=== PATIENT | female | born 1945 | race Caucasian/White ===

== ENCOUNTER → 2016-08-28 | Outpatient (CLI) | payer MEDICARE, BC ==
[~2016-08-28] MED LIST: ASCO500C7 PO; CHOL500010 PO; CYCL5TAB PO; KRIL1CAP11 PO; LEVO50TA74 PO; LEVO75TA5 PO; MELO-109 PO; MULT-762 PO; ULT50 PO
--- NOTE | 2016-08-28 17:54 | HKNOTE ---
DATE OF SERVICE: 08/28/2016 HISTORY OF PRESENT ILLNESS: Patient comes in for preoperative evaluation. She is scheduled to have a right knee replacement on 09/02/2016. She is being cleared for surgery by Dr. Lundberg. She has not given any blood for autotransfusion. She understands the risks associated with using hospit al blood. She is agreeable to using hospital blood if needed. Numerous questions were asked and an swered. She read my book on knee arthritis and knee replacement surgery. Dictated By: JEROMY KANG/RAFI Conf#: [id number] DID#: [id number]
== END | disposition home or self-care (01) ==
LOC: HKI 13:11
DX: Z01.818 Encounter for other preprocedural examination (principal)
CPT/HCPCS: G0463

== ENCOUNTER 2016-09-02 05:19 | Inpatient (IN) | payer MEDICARE, BC ==
--- NOTE | 2016-08-28 15:11 | PREOPHP ---
DATE OF ADMISSION: 09/02/2016 Patient to have surgery with Dr. Sahil Miller 09/02/2016. REASON FOR CONSULTATION: Consultation requested by Dr. Sahil Miller for medical evaluation o f a 71-year-old woman about to undergo surgery on her right knee. HISTORY OF PRESENT ILLNESS: In terms of her prior surgical procedure, she had a total hip replaceme nt in 2000, had a cervical spine fusion done a while back, right and left carpal tunnel. She had fr actured her right hip in the past and also had a parathyroidectomy done for hypercalcemia or hyperpa rathyroidism. Other than her fractured right hip and fracture of the fifth metatarsal that did not require any surgery and had right arthroscopic shoulder surgery. Other than that, she has been rela tively healthy and has had no medical hospitalizations. Her deliveries were vaginal and not requiri ng any surgical procedures. CURRENT MEDICATIONS: Include the followin. Synthroid 50 mcg 5 days a week, 75 mcg 2 days a week. 2. Meloxicam 7.5 mg b.i.d., which she has stopped. 3. Tramadol 50 mg q. 6 hours. 2. Cyclobenzaprine 5 mg as needed. ALLERGIES 1. PENICILLIN. 2. TURMERIC. SOCIAL HISTORY: The patient is , has 2 children, 4 grandchildren. She does not smoke. [place]co hol socially. Drinks tea, is currently retired and usually has no difficulty sleeping at night. FAMILY HISTORY: Both parents are . Father at age 89, has hypertension but had Jose Juan on related issues, which caused his , mother at 93, had dementia. Three siblings are in good health, however, has been one sibling with bladder and prostate cancer. Family history of heart, cancer, hypertension and possibly stroke and everybody has thyroid issues. REVIEW OF SYSTEMS HEENT: Periodic headaches. CARDIORESPIRATORY: Denies any chest pain or shortness of breath. GASTROINTESTINAL: No melena or hematemesis. GENITOURINARY: No urgency or frequency. MUSCULOSKELETAL: Positive for right knee pain. 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 NEUROPSYCHIATRIC: Unremarkable. GENERAL HEALTH: As above. PHYSICAL EXAMINATION: VITAL SIGNS: The patient's blood pressure was 140/80, pulse was 80 and regular, respirations were 1 7, temperature 98.1. Height 5 feet tall, weight 214 pounds. GENERAL: The patient was noted to be a well-developed, well-nourished female, alert and cooperative , in no apparent acute distress, oriented to time, place, and person. HEAD, EARS, EYES, NOSE AND THROAT: Head was atraumatic. Eyes: Pupils were equal, reactive to ligh t and accommodation. Fundi were benign. Tympanic membranes were unremarkable. Nose was negative. Mouth was unremarkable. Fair oral hygiene was present. NECK: Supple without any rigidity. Trachea was midline. Thyroid was within normal limits. Neck v eins were flat. Carotid pulses were equal. No bruits were heard. BACK: Unremarkable. CHEST: Symmetrical. BREASTS AND AXILLARY: Did not reveal any masses. LUNGS: Clear to percussion and auscultation. HEART: PMI is fifth intercostal space at the midclavicular line. A regular sinus rhythm was noted . No significant murmurs, rubs, or gallops being elicited. ABDOMEN: Soft, good bowel sounds were noted. No significant organomegaly, masses, or tenderness. GENITALIA: Normal female external genitalia. PELVIC: Per cloud subject matter expert, up to date, unremarkable. EXTREMITIES: Not revealing clubbing, edema or cyanosis. Scar the at the right hip area was noted a s well as anterior cervical. Peripheral pulses were physiologic. SKIN: Moist and warm without any eruptions. No gross lymphadenopathy was noted. NEUROLOGIC: Grossly intact. IMPRESSION: 1. Degenerative joint disease, right knee. 2. 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 3. Hypothyroidism. 4. Menopausal syndrome. 5. Stable health. DISCUSSION: Review of laboratory and other data revealed the following: Patient's chemistry panel revealed a normal glucose, BUN, creatinine, electrolytes, liver function tests, alkaline phosphatase was minimally elevated at 162, probably secondary to her hip disease. TSH was 3.67, B12 was somewh at low. Hemoglobin A1c was normal. Vitamin D was normal. T3 was slightly low. CBC, sed rate, UA, PT, PTT were normal, the patient's EKG was normal and her chest x-ray was within normal limits as w ell. The hardware from cervical spine fusion was visible but no acute infiltrates or any other abno rmalities. Dr. Miller, I see no contraindication in this patient undergoing current proposed surgery under desired form of anesthesia and feel she is a suitable candidate at this particular point in time and will be more than happy to follow her along with you during her stay at [facility]. Thank you again, Dr. Miller, for allowing us to participate in the care of this patient. Dictated By: CONCHA BEATTY MD SS/RAFI Conf#: [id number] DID#: [id number]
[2016-09-01 10:08] VITALS: BMI 39.2
[2016-09-02] VITALS (23 sets, daily range): BP systolic 104–137; BP diastolic 59–74; PULSE 57–96; RESP 11–20; Ht 152.4 cm; Wt 95.8 kg
[~2016-09-02] VITALS: Ht 152.4 cm; Wt 95.8 kg
[~2016-09-02 05:19] MED LIST changes: -ASCO500C7 PO; -CHOL500010 PO; -CYCL5TAB PO; +KNEE PAIN COCKTAIL VANCO INJ SCH; -KRIL1CAP11 PO; -LEVO50TA74 PO; -LEVO75TA5 PO; -MELO-109 PO; -MULT-762 PO; -ULT50 PO
[2016-09-02] MEDS ORDERED: DEXAMETHASONE 4 MG/ML 1 ML INJ IV ONE (06:00)
[2016-09-02] MEDS ORDERED: LANSOPRAZOLE 30 MG CAP PO ONE (06:00)
[2016-09-02] MEDS: TRANEXAMIC ACID IRR SCH ×4 (06:00→08:55)
[2016-09-02] MEDS: SOD CHLORIDE 0.9% IRR SCH ×4 (06:00→08:55)
[2016-09-02] MEDS ORDERED: VANCOMYCIN 1 GM (PMX) 250 ML IVPB ONE (06:00)
[2016-09-02] MEDS ORDERED: oxyCODONE (CR) 10 MG TAB [oxyCONTIN] PO ONE (06:00)
[2016-09-02] MEDS ORDERED: LACTATED RINGER'S 1,000 ML IV* SCH (06:00)
[2016-09-02] MEDS ORDERED: ACETAMINOPHEN 1000MG/100ML IV 100 ML IVPB ONE (06:00)
[2016-09-02] MEDS ORDERED: TRANEXAMIC ACID IVPB ONE (06:00)
[2016-09-02] MEDS ORDERED: SOD CHLORIDE 0.9% IVPB ONE (06:00)
[2016-09-02] MEDS ORDERED: CELECOXIB 200 MG CAP PO ONE (06:00)
[2016-09-02] MEDS ORDERED: ONDANSETRON 4 MG INJ IV ONE (06:00)
[2016-09-02] MEDS ORDERED: ROPIVACAINE 0.2% 100ML BAG ONE (06:32)
[2016-09-02] MEDS ORDERED: METHYLENE BLUE 10 MG/ML VIAL ONE (06:32)
[2016-09-02] MEDS ORDERED: POLYMYXIN B 500000 UNIT INJ ONE (06:33)
[2016-09-02] MEDS ORDERED: VANCOMYCIN 1 GM INJ ONE (06:33)
[2016-09-02] MEDS ORDERED: TOBRAMYCIN 1.2 GM POWDER ONE (06:35)
[2016-09-02] MEDS ORDERED: BUPIVACAINE 0.25%/EPI (SDV) 30 ML INJ ONE ×2 (06:35→08:14)
[2016-09-02] MEDS ORDERED: MIDAZOLAM 1 MG/ML 2 ML INJ ONE (06:41)
[2016-09-02] MEDS ORDERED: MELO-109 PO (06:58)
[2016-09-02] MEDS ORDERED: ULT50 PO (06:58)
[2016-09-02] MEDS ORDERED: LEVO50TA74 PO (06:58)
[2016-09-02] MEDS ORDERED: LEVO75TA5 PO (06:58)
[2016-09-02] MEDS ORDERED: FENTAnyl 50 MCG/ML VIAL ONE (07:11)
[2016-09-02] MEDS ORDERED: MULT-762 PO (07:19)
[2016-09-02] MEDS ORDERED: ASCO500C7 PO (07:19)
[2016-09-02] MEDS ORDERED: CYCL5TAB PO (07:19)
[2016-09-02] MEDS ORDERED: CHOL500010 PO (07:19)
[2016-09-02] MEDS ORDERED: KRIL1CAP11 PO (07:19)
[2016-09-02] MEDS ORDERED: ROPIVACAINE 0.2% 20 ML VIAL ONE (07:29)
[2016-09-02] MEDS ORDERED: MEPERIDINE 25 MG INJ IV PRN (08:30)
[2016-09-02] MEDS ORDERED: NALOXONE (0.4 MG/ML) INJ IV PRN ×2 (08:30→11:00)
[2016-09-02] MEDS ORDERED: ONDANSETRON 4 MG INJ IV PRN (08:30)
[2016-09-02] MEDS ORDERED: HYDROmorphONE (0.2 MG/ML) 10ML SYG IV PRN ×2 (08:30)
[2016-09-02] MEDS ORDERED: FENTAnyl 50 MCG/ML VIAL IV PRN (08:30)
[2016-09-02] MEDS ORDERED: DIPHENHYDRAMINE 50 MG INJ IV PRN (08:30)
[2016-09-02] MEDS ORDERED: BACITRACIN 50000 UNITS INJ IRR ONE (08:54)
[2016-09-02] MEDS ORDERED: PROPOFOL 20 ML ONE (10:33)
[2016-09-02] MEDS ORDERED: ONDANSETRON 4 MG INJ ONE (10:33)
[2016-09-02] MEDS ORDERED: ROCURONIUM 50 MG INJ ONE (10:33)
[2016-09-02] MEDS ORDERED: LIDOCAINE 2% (SDV) 5 ML INJ ONE (10:33)
--- NOTE | 2016-09-02 10:59 | RADRPT ---
PROCEDURE: CR Right Knee CLINICAL INDICATION: Total knee replacement TECHNIQUE: A single lateral projection was submitted. COMPARISON: 04/17/2016 FINDINGS: Osseous Structures: The patella has been resected. The remaining osseous elements appear intact. Join Spaces: Moderate degenerative changes seen about the patellar femoral joint space. Soft Tissues: Italic or where projects anterior to the tibia and into the distal femur. IMPRESSION: 1. Lateral inch taken during the process of a total right knee replacement with the patella having been resected. 2. Hardware projects anteriorly. Physician Natasha Date Time Electronically viewed and signed by Jerman Simons Physician on 09/02/2016 10:59 RH/
[2016-09-02] MEDS ORDERED: MAGNESIUM HYDROXIDE 30ML CUP PO PRN (11:00)
[2016-09-02] MEDS ORDERED: BISACODYL 10 MG SUPP PR PRN (11:00)
[2016-09-02] MEDS ORDERED: ASPIRIN (EC) 325 MG TAB PO ONE (11:00)
[2016-09-02] MEDS ORDERED: DIPHENHYDRAMINE 50 MG INJ IM PRN (11:00)
[2016-09-02] MEDS ORDERED: HYDROmorphONE 0.2 MG/ML PCA IV PRN (11:00)
[2016-09-02] MEDS ORDERED: oxyCODONE 5 MG TAB PO PRN ×2 (11:00)
[2016-09-02] MEDS ORDERED: DOCUSATE SODIUM 100 MG CAP PO ONE (11:00)
[2016-09-02] MEDS ORDERED: ZOLPIDEM 5 MG TAB PO PRN (11:00)
[2016-09-02] MEDS ORDERED: SENNA/DOCUSATE NA (8.6MG/50MG) TAB PO PRN (11:00)
[2016-09-02] MEDS ORDERED: NA PHOSPHATE/BIPHOS 133 ML ENEMA PR PRN (11:00)
[2016-09-02] MEDS ORDERED: MEPERIDINE 10 MG/ML 30 ML PCA IV PRN (11:00)
[2016-09-02] MEDS ORDERED: COUMADIN NOTE XX SCH (11:00)
[2016-09-02] MEDS: ONDANSETRON 4 MG INJ IV SCH ×3 (11:35→23:00)
--- NOTE | 2016-09-02 11:37 | RADRPT ---
PROCEDURE: CR Right Knee CLINICAL INDICATION: Right total knee replacement TECHNIQUE: 7 images were submitted all of which are AP except for 1 lateral projection COMPARISON: Previous lateral view done earlier on the same date FINDINGS: Osseous Structures: Images demonstrate placement of well seated distal femoral and proximal tibial p ortions of knee replacement. The patellar component is not evident. The osseous elements otherwise appear intact. Join Spaces: The joint spaces are well maintained. No joint effusion is identified. Soft Tissues: There is a surgical defect seen within the anterior soft tissues. IMPRESSION: 1. The distal femoral and proximal tibial total knee replacement components appear well seated well the patellar component has not yet been placed. 2. The osseous elements otherwise appear intact. 3. Surgical defect seen ventrally. Physician Natasha Date Time Electronically viewed and signed by Physician Natasha on 09/02/2016 11:37 /
[2016-09-02] MEDS: DEXTROSE 5%-LR 1,000 ML IV SCH ×2 (11:40→23:10)
--- NOTE | 2016-09-02 13:00 | OPR ---
DATE OF OPERATION: 09/02/2016 TOTAL KNEE REPLACEMENT TEMPLATE #1 SURGEON: Sahil Miller MD LAST MODEL DEPARTMENT SUPERVISOR: ANESTHESIOLOGIST: Dr. Keith PREOPERATIVE DIAGNOSIS: Exceedingly severe degenerative osteoarthritis of the right knee. POSTOPERATIVE DIAGNOSIS: Exceedingly severe degenerative osteoarthritis of the right knee. OPERATION PERFORMED: Total knee replacement (arthroplasty of the knee, condylar plateau medial and lateral compartments with patella resurfacing, CPT 98992). FINDINGS AT SURGERY: The knee was found to have severe degenerative changes particular severe on th e femoral side over the weightbearing surfaces. The arthritis was much worse than was noted on the x-ray. An intraoperative x-ray was obtained of the distal femur to show the extent of the weightbea ring the erosion. Her bone quality was remarkably good for a female of her age. If she were 15 yea rs younger she may have been a candidate for partial knee replacement, but definitely not at her age . She would need a revision surgery with 2 or 3 years. JUSTIFICATION FOR SURGERY: The knee was found to have end-stage osteoarthritis. The patient is a v nelson active 71-year-old whose lifestyle is markedly affected by the arthritic knee. An extensive cou rse of conservative care has been tried prior to embarking on the knee replacement operation. There can be no reasonable expectation that any further conservative treatment will make any improvement to this patient's pain level and lifestyle. The risks and complications of the surgery were discuss ed with the patient at the preoperative visit as well as the risks and possible complications of blo od transfusion using hospital blood. The patient is agreeable to using hospital blood if needed. DESCRIPTION OF PROCEDURE: The patient was given intravenous antibiotics 1 hour prior to surgery. A n epidural anesthetic was initiated in the ICU holding area. The patient was taken to the operating room and given a light general anesthetic. The leg, foot, and ankle were prepared and draped in th e usual sterile fashion. The center of the ankle was marked at the midpoint between the 2 malleoli with a sterile marking pen. A tourniquet around the thigh was inflated to ____ mmHg after the leg h ad been exsanguinated using an Esmarch bandage. The tourniquet was inflated at the initiation of pr ocedure for a short period and was then again reinflated at the time of cementing the components par ts. The total tourniquet time was 46 minutes. A longitudinal incision was made over the anterior aspect of the knee. The incision extended from t he tibial tubercle to a point just above the patella. The medial capsule was exposed by sharp and b ayala dissection, and was incised 1/4 inch medial to the patella. A marking stitch was set on each s randy of the incision at the midpoint of the capsule so as to enable accurate reapproximation at the e nd of the operation. A vastus split was made in the vastus medialis extending from the superior sanjeev e of the patella for approximately 5 cm between the line with the muscle fibers. The ends of the mu scle split at the patella were marked with a marking stitch on each side for later accurate reapprox imation. The patella was reflected laterally and osteophytes around the rim of the patella were rem blanco. Osteophytes along the lateral femoral condyle were removed so as to facilitate lateral reflec tion of the patella. Posteromedial osteophytes were removed on the lateral side as well, so as to f ree up the lateral collateral ligament. Medial femoral osteophytes and posteromedial femoral osteop hytes were also removed at this time. This allowed for the knee to be brought into a more normal al ignment. A segment of bone was cut from the articular surface of the patella using a caliper to det ermine the exact thickness to be removed. The remaining thickness of the patella was 15 mm. The kn ee was flexed, and the patella was displaced laterally without eversion. Osteophytes in the femoral notch were removed. The remnants of the medial and lateral menisci were excised and the cruciate l igaments were excised. The medial collateral ligament was elevated as an osteo-periosteal flap from the proximal tibia. The distal end of the medial collateral ligament remained attached to the tibi a throughout the operation. The tibia was retracted forward with Hohmann retractor, inserted extension educator ior to the midpoint of the proximal tibia. The tibial jig was set in place in such a way as to alig n longitudinally with the anterior tibial spine, with the junction of the middle and medial 2/3 of t he patella tendon, and with the posterior intercondylar eminence of the tibia. An AP and lateral x- ray was obtained with the alignment jig in place. This showed that the alignment was satisfactory a fter some slight adjustments were made. The posterior slope of the tibia was set at 6 degrees. The tibial cutting block was attached to the proximal tibia with 2 Steinmann pins. An external alignme nt elisa was placed on the cutting block to confirm the alignment of the cutting block. An Herber Wing feeler gauge was now placed on the superior aspect of the cutting block to further confirm the post erior slope of the tibia and the depth of the cut to be made. An oscillating saw was used to remove an appropriate amount of bone from the proximal tibia with the healthy side being used to measure t he cutting depth. The lateral femoral condyle of the distal femur was measured to determine the barbara ropriate size for the femoral component. The anterior condyle of the femur was partially removed wi th a rongeur. A medium-sized cutting block was attached to the distal femur with 2 Steinmann pins t hrough the pin holes in the block. The external alignment jig of this cutting block was lined up wi th the anterior surface of the femur and a central intercondylar hole for the intramedullary elisa was drilled through the hole in the alignment block. The block was removed. A long Waterpik nozzle wa s used to flush fat from the intramedullary canal. The appropriately sized cutting block was now at tached to the femur by means of an intramedullary elisa. The linking guide was inserted into the slot in the base of the femoral cutting block with the knee set at 90 degrees of flexion and with the li nking guide set flush with the proximal tibial cut in order to set the appropriate rotational alignm ent on the femoral cutting block. Ligament balance was checked at this point and was found to be ve ry satisfactory. Once the rotational alignment had been determined, and the ligaments found to be b alanced, the femoral cutting block was secured to the distal femur with 2 Steinmann pins. The anter ior and posterior cuts of the distal femur were made off the femoral cutting block. The cutting blo ck was removed and a spacer block was used to measure the flexion gap which was found to be 12.5 mm. The same spacer block size without the femoral element was used with the leg in extension to determi ne the amount of distal femur to be removed in the transverse plane. A 5-degree distal cutting bloc k was now set on the femoral intramedullary elisa, and the elisa was inserted into the intramedullary ca nal. The appropriate amount of bone to be removed was determined. The femoral cutting block was pi nned to the anterior surface of the femur with 2 Steinmann pins. The appropriate amount of bone was resected off the distal femur to give an extension gap equal to the thickness of the flexion gap. The cut needed to be repeated after initial cut in order to produce an extension gap the same size a s the flexion gap. By using the appropriate cutting blocks, the rest of the femoral cuts were made. The femoral trial component was installed and was found to fit perfectly. The femoral trial component was removed. T he proximal tibia was sized, and the appropriate tibial tray selected. The central fixation hole in the tibia was made using the tibial tray template and the appropriate instruments. The femoral and tibial trials and the trial tibial insert were installed, and the patella was prepared to accept th e 32 mm patella dome component. The trial components were all removed. The tourniquet was inflated . Soft tissues around the knee, especially the posterior capsule, were injected with a mixture of N aropin, Toradol, morphine, and clonidine. The cut surfaces of the bones were cleaned with pulsatile Water Jet lavage and thoroughly dried. Sclerotic bone surfaces were drilled with a 1/8-inch drill. The tibial trial component was installed with methyl methacrylate cement followed by the femoral c omponent and finally the patellar component. Cement was used on all 3 components. The cement was f fozia packed into the cut surfaces of the bone and pressurized with a rubber dam in order to get goo d interdigitation of the cement into the bone. A lateral x-ray of the knee was obtained while the c ement was hardening with the anticipated appropriate spacer trial in place. Once the cement was zack d, all extraneous cement was removed. The cut edges of the medial capsule were held together at the midpoint with a towel clip, and the knee was put through a full range of motion. The patella was f ound to track satisfactorily. A lateral release was not required. At this point, the patella was f ound to track very well in the patellar groove of the femoral component. While the cement was hardening, a lateral x-ray of the knee was obtained to determine if extension w as full with the 12.[address]. This showed that there was slight hyperextension, and onc e all cement had been removed, the 15 mm trial was installed, and the knee was found to have full ex tension and was found to track perfectly. The knee was frequently irrigated with normal saline containing antibiotics with pulsatile lavage th roughout the entire operation as a prophylactic measure against infection. Once the cement was hard , the tourniquet was released. Bleeding points were cauterized. The total tourniquet time was 46 m inutes. The patient's vital signs remained stable throughout the operation. The permanent rotating bearing was installed. Superficial and deep Hemovac drains were set in place . The wound was closed using interrupted Vicryl on the capsule with FiberWire used at strategic poi nts such as the attachment of the distal ends of the vastus medialis at the split, and the tibial te ndon was also attached to the osteo-periosteal flap with FiberWire. The rest of the medial capsule was closed with interrupted Vicryl. A subcuticular stitch was inserted and brooklynn were used on the skin. The usual sterile dressings were applied. A Yury-Gordon compression dressing was applied a fter a sterile cooling pad had been set in place against the deep tissues by sterile cast padding. The patient's condition at the end of the procedure was satisfactory. Vital signs remained stable t hroughout the operation. The patient returned to the recovery room in stable condition. X-rays wer e obtained in the recovery room. Calf pumps were applied to both legs in the operating room. There were no problems or complications as far as we know. The sponge and instrument counts were correct . COMPONENT INFORMATION: KNEE IMPLANT TYPE: LCS. FEMORAL COMPONENT SIZE: 10. TIBIAL COMPONENT SIZE: 2.5. PATELLAR COMPONENT SIZE: 32 mm dome. TIBIAL INSERT: 15 mm posterior stabilized mobile bearing deep dish. 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 TOTAL TOURNIQUET TIME: 46 minutes. TOTAL BLOOD LOSS: Approximately 200 mL. Note that the patient seemed to be quite excessively durin g surgery, even with the tourniquet up, and even more so with the tourniquet down. We asked the ane sthesiologist to give her hypotensive anesthesia down to 80 mm level before bleeding was brought und er control. Dictated By: SAHIL KANG/RAFI Conf#: [id number] DID#: [id number]
--- NOTE | 2016-09-02 13:04 | RADRPT ---
PROCEDURE: XR Knee. CLINICAL INDICATION: Postoperative evaluation right knee TECHNIQUE: 2 images of the right knee are available for review. COMPARISON: None available FINDINGS: There is a constrained total right knee arthroplasty in anatomic alignment. There is anterior soft tissue swelling and soft tissue gas. There is a drain and skin brooklynn noted. There is no acute os seous abnormality. IMPRESSION: Recent right knee total arthroplasty as described above. RPTAT: UU .Mac Evans MD, MD Date Time Electronically viewed and signed by .Mac Evans MD, MD on 09/02/2016 13:04 .K/
[2016-09-02] MEDS ORDERED: CYCLOBENZAPRINE 10 MG TAB PO PRN (13:30)
--- NOTE | 2016-09-02 15:03 | CONS ---
DATE OF ADMISSION: 09/02/2016 DATE OF CONSULTATION: 09/02/2016 HISTORY OF THE PRESENT ILLNESS: Patient to have surgery with Dr. Sahil Miller 09/02/2016. Th e patient is seen by myself after she got to the floor approximately 1:00 p.m. This is a postop consult followup for this patient who is alert, comfortable postoperatively not yen wsy and all. She says she is feeling quite well. PHYSICAL EXAMINATION: VITAL SIGNS: The patient's vital signs revealed the following: Her blood pressure was 128/69, puls e was 74 and regular, respirations were 18, temperature 98 and O2 sat 98% on room air. HEENT: Unremarkable. LUNGS: Clear. HEART: Reveals a regular rhythm. ABDOMEN: Unremarkable. IMPRESSION: 1. 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 2. 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 3. Hypothyroidism. 4. Menopausal syndrome. 5. Stable health. DISCUSSION: The patient appears to be quite stable, does take some medications which will be renewe d and just watch her and monitor her medically during her stay at [facility]. Thank you again, Dr. Miller, for allowing us to participate in the care of this patient. Dictated By: CONCHA SELF/RAFI Conf#: [id number] DID#: [id number]
[2016-09-02] MEDS: VANCOMYCIN 1 GM (PMX) 250 ML IVPB SCH (18:11)
[2016-09-02] MEDS: CELECOXIB 200 MG CAP PO SCH (21:58)
[2016-09-03 00:07] VITALS: BP 118/63; RESP 16
[2016-09-03] MEDS: ONDANSETRON 4 MG INJ IV SCH (04:15)
[2016-09-03 05:21] LABS: BASOPHILS % 0.2 % (0.0-2.0); HEMOGLOBIN 10.9 g/dl (12.0-16.0); LYMPHOCYTES # 1.8 10^3/ul (0.8-2.9); LYMPHOCYTES % 12.5 % (15.0-51.0); MEAN CORPUSCULAR HEMOGLOBIN 29.7 pg (29.0-33.0); MEAN CORPUSCULAR HGB CONC 34.1 g/dl (32.0-37.0); MEAN PLATELET VOLUME 8.6 fl (7.4-10.4); MONOCYTES % 6.8 % (0.0-11.0); NEUTROPHIL # 11.6 10^3/ul (1.6-7.5); NEUTROPHILS % 80.5 % (39.0-77.0); PLATELET COUNT 295 10^3/UL (140-440); RED BLOOD COUNT 3.68 10^6/ul (4.20-5.40); RED CELL DISTRIBUTION WIDTH 14.3 % (11.5-14.5); UNCORRECTED WBC 14.4 10^3/ul (4.8-10.8); WHITE BLOOD COUNT 14.4 10^3/ul (4.8-10.8)
[2016-09-03 05:32] LABS: CONDITION 1
[2016-09-03] MEDS ORDERED: KETOROLAC 30 MG INJ INJ PRN (06:00)
[2016-09-03] MEDS ORDERED: BUPIVACAINE 0.25%/EPI (SDV) 30 ML INJ INJ PRN (06:00)
[2016-09-03] MEDS: DEXAMETHASONE 4 MG/ML 1 ML INJ IV SCH (06:05)
[2016-09-03] MEDS: LEVOTHYROXINE 50 MCG TAB PO SCH (06:05)
[2016-09-03] MEDS: VANCOMYCIN 1 GM (PMX) 250 ML IVPB SCH (06:07)
[2016-09-03 08:23] VITALS: BP 118/55; RESP 18
[2016-09-03] MEDS: ASCORBIC ACID 250 MG TAB PO SCH (09:00)
[2016-09-03] MEDS: MULTIVITAMINS THERAPEUTIC TAB PO SCH (09:19)
[2016-09-03] MEDS: DOCUSATE SODIUM 100 MG CAP PO SCH ×2 (09:19→20:28)
[2016-09-03] MEDS: ASPIRIN (EC) 325 MG TAB PO SCH ×2 (09:19→20:27)
[2016-09-03] MEDS: FERROUS FUMARATE (SR) TAB PO SCH ×2 (09:19→20:28)
[2016-09-03] MEDS: CELECOXIB 200 MG CAP PO SCH ×2 (09:20→20:27)
[2016-09-03] MEDS: CHOLECALCIFEROL 1,000 UNIT TAB PO SCH (09:20)
[2016-09-03] MEDS: DEXTROSE 5%-LR 1,000 ML IV SCH (11:49)
--- NOTE | 2016-09-03 13:11 | CONS ---
DATE OF ADMISSION: 09/02/2016 DATE OF CONSULTATION: 09/03/2016 POSTOP CONSULT FOLLOWUP SUBJECTIVE: The patient is alert this morning, doing well, got out of bed the day before and really is coming along quite nicely. PHYSICAL EXAMINATION: VITAL SIGNS: Revealed the following: Temperature is 98.4, pulse 67, respirations 16, blood pressur e 118/63, O2 saturation 97%. HEENT: Unremarkable. LUNGS: Clear. HEART: Reveals regular rhythm. The rest of the exam is unremarkable. IMPRESSION: 1. 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 2. Hypothyroidism. 3. Menopausal syndrome. 4. Stable health. DISCUSSION: Review of laboratory and other data reveals the following: CBC: Hemoglobin 10.9, melody tocrit of 32. The patient's white count is minimally elevated secondary probably to steroid use. P stuart is per Dr. Miller. The patient is progressing nicely and will continue current medical cynthia men. Thank you again, Dr. Miller, for allowing us to participate in the care of this patient. Dictated By: CONCHA BEATTY MD SS/RAFI Conf#: [id number] DID#: [id number]
--- NOTE | 2016-09-03 14:21 | PN ---
DATE: 09/03/2016 POSTOP DAY #1. The patient underwent a right knee replacement yesterday. She made an excellent recovery. She was up and about walking with physical therapy in the afternoon. She has had minimal pain since the raegan bijan. She has no complaints whatsoever. PHYSICAL EXAMINATION: On physical examination, the wound looks excellent. Her temperature is normal . LABORATORY DATA: White cell count is 14.4, hemoglobin is 10.9. Patient can actively elevate the leg and extension is full, active flexion is to 110 degrees. Neuro vascular is intact. Dictated By: JEROMY KANG/RAFI Conf#: [id number] DID#: [id number]
[2016-09-03 15:15] LABS: ADD UMIC YES; URINE BILIRUBIN (Dip) NEGATIVE (NEGATIVE); URINE BLOOD (Dip) NEGATIVE (NEGATIVE); URINE COLOR LT. YELLOW (YELLOW); URINE GLUCOSE (Dip) NEGATIVE (NEGATIVE); URINE KETONES (Dip) NEGATIVE (NEGATIVE); URINE LEUKOCYTE ESTERASE (Dip) TRACE (NEGATIVE); URINE NITRITE (Dip) NEGATIVE (NEGATIVE); URINE TOTAL PROTEIN (Dip) NEGATIVE (NEGATIVE); URINE UROBILINOGEN (Dip) 0.2 E.U./dL (0.1-1.0)
[2016-09-03 15:37] LABS: MUCUS,URINE FEW; URINE RBCS NONE SEEN /HPF (0)
[2016-09-03 21:02] VITALS: BP 113/56; RESP 19
[2016-09-04] MEDS: DEXTROSE 5%-LR 1,000 ML IV SCH (00:19)
[2016-09-04] MEDS ORDERED: PANTOPRAZOLE (EC) 40 MG TAB PO SCH (06:00)
[2016-09-04] MEDS: DEXAMETHASONE 4 MG/ML 1 ML INJ IV SCH (06:44)
[2016-09-04] MEDS: LEVOTHYROXINE 50 MCG TAB PO SCH (06:45)
[2016-09-04 08:02] LABS: BASOPHIL # 0.1 10^3/ul (0.0-0.1); BASOPHILS % 0.5 % (0.0-2.0); CONDITION 1; EOSINOPHILS # 0.1 10^3/ul (0.0-0.5); EOSINOPHILS % 0.6 % (0.0-7.0); HEMATOCRIT 31.9 % (37.0-47.0); HEMOGLOBIN 10.7 g/dl (12.0-16.0); LYMPHOCYTES # 2.3 10^3/ul (0.8-2.9); LYMPHOCYTES % 21.6 % (15.0-51.0); MEAN CORPUSCULAR HEMOGLOBIN 29.6 pg (29.0-33.0); MEAN CORPUSCULAR HGB CONC 33.6 g/dl (32.0-37.0); MEAN CORPUSCULAR VOLUME 88.3 fl (82.0-101.0); MEAN PLATELET VOLUME 8.4 fl (7.4-10.4); MONOCYTES % 9.2 % (0.0-11.0); NEUTROPHIL # 7.3 10^3/ul (1.6-7.5); NEUTROPHILS % 68.1 % (39.0-77.0); PLATELET COUNT 274 10^3/UL (140-440); RED BLOOD COUNT 3.62 10^6/ul (4.20-5.40); RED CELL DISTRIBUTION WIDTH 14.2 % (11.5-14.5); UNCORRECTED WBC 10.8 10^3/ul (4.8-10.8); WHITE BLOOD COUNT 10.8 10^3/ul (4.8-10.8)
[2016-09-04 08:13] VITALS: BP 122/57; RESP 18
[2016-09-04] MEDS: CELECOXIB 200 MG CAP PO SCH (08:48)
[2016-09-04] MEDS: ASCORBIC ACID 250 MG TAB PO SCH (08:48)
[2016-09-04] MEDS: ASPIRIN (EC) 325 MG TAB PO SCH (08:48)
[2016-09-04] MEDS: DOCUSATE SODIUM 100 MG CAP PO SCH (08:48)
[2016-09-04] MEDS: FERROUS FUMARATE (SR) TAB PO SCH (08:48)
[2016-09-04] MEDS: CHOLECALCIFEROL 1,000 UNIT TAB PO SCH (08:48)
[2016-09-04] MEDS: MULTIVITAMINS THERAPEUTIC TAB PO SCH (08:48)
--- NOTE | 2016-09-04 11:03 | CONS ---
DATE OF ADMISSION: 09/02/2016 DATE OF CONSULTATION: POSTOPERATIVE CONSULT FOLLOWUP Patient had surgery with Dr. Sahil Miller. HISTORY OF PRESENT ILLNESS: The patient had a relatively decent night other than her legs bothering her secondary to the _leg pumps. Other than that, she has no significant complaints, ambulated yesterday without any great difficulty. PHYSICAL EXAMINATION: VITAL SIGNS: Revealed a blood pressure of 122/57, pulse of 82, respiratory rate 18, temperature 98.8, O2 saturation 100% on room air. HEENT: Unremarkable. LUNGS: Clear. HEART: Reveals a regular rhythm. The rest of the exam is unremarkable. IMPRESSION: 1. 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 2. Hypothyroidism. 3. Menopausal syndrome. DISCUSSION: Laboratory and other data today reveal white count has come down to 10.8, hemoglobin was 10.7, hematocrit 31.9 and that is the only lab ordered for today. Yesterday, had a urine which was negative. DISCUSSION: Plan per Dr. Miller. The patient is improving rapidly and is looking forward to going home. Thank you again, Dr. Miller, for allowing us to participate in care of this patient. Dictated By: CONCHA BEATTY MD SS/RAFI Conf#: [id number] DID#: [id number] MTDD
--- NOTE | 2016-09-04 11:11 | PN ---
DATE: 09/04/2016 POSTOPERATIVE DAY #2: The patient is making excellent progress. She is completely independent. Her wound is clean and healing well. She has minimal pain. Hemoglobin 10.7, white cell count 10.8. T he patient will be discharged home today. Visiting nurses and home physical therapy have been helio gandhi for her. She will be seen in my office in 3 weeks' time for re-evaluation. She was given extra dressings to take home with her. Dictated By: JEROMY KANG/RAFI Conf#: [id number] DID#: [id number]
--- NOTE | 2016-09-04 17:31 | DS ---
DATE OF ADMISSION: 09/02/2016 DATE OF DISCHARGE: 09/04/2016 CHIEF COMPLAINT: Pain in the right knee. DISCHARGE DIAGNOSIS: Severe degenerative osteoarthritis of the right knee. HOSPITAL COURSE: On the day of admission, the patient underwent right total knee replacement. Intraoperative Complications: None. Postoperative Complications: None. The patient made excellent progress. She was up walking with physical therapy on the day of surgery and thereafter progressed rapidly so that she is going home on the second postoperative day. On the first postoperative day, physical therapy was started. Gait training was started. The finn lal's leg was placed on a continuous passive motion exercise machine. The patient was given prophylact ic antibiotics and anticoagulants. On the first postoperative day, the suction drain was removed and the dressings were changed daily. The wound was found to be clean and healing well. There was no sign of infection. On the day of discharge, the wound was clean and healing well; there was no sign of infection, the d ressings were changed. Discharge Hemoglobin: 10.7. Discharge White Cell Count: 10.8. Discharge Temperature: Normal. Discharge Condition: The patient will be seen in my office in 3 weeks' time for a followup evaluation but will call if there are any problems before that time and will, in that case, be seen sooner. DISCHARGE MEDICATIONS: Per medication reconciliation form. DIET: Same as preadmission diet. DISCHARGE DIAGNOSIS: Severe degenerative osteoarthritis of the right knee. Dictated By: JEROMY KANG/RAFI Conf#: [id number] DID#: [id number]
== END 2016-09-04 12:20 | disposition home health service (06) | DRG 470 ==
LOC: REC 05:19 → MS1 13:08
PROC: 0SRC0J9 Replacement of Right Knee Joint with Synthetic Substitute, Cemented, Open Approach (ICD-10-PCS; principal; 2016-09-02 07:00)
DX: M17.11 Unilateral primary osteoarthritis, right knee (principal); E03.9 Hypothyroidism, unspecified; Z96.641 Presence of right artificial hip joint; Z78.0 Asymptomatic menopausal state; Z98.1 Arthrodesis status; Z88.0 Allergy status to penicillin
CPT/HCPCS: 73560; 73562; 81001; 81003; 85025; 86850; 86900; 86901; 86920; 87081; 87086; 88304; 88311; 97110; 97116; 97163; 97166; 97530; C1776; J0131; J0735; J1100; J1885; J2250; J2274; J2405; J2795; J3010; J3370; J7120; J7121

== ENCOUNTER → 2016-09-23 | Outpatient (CLI) | payer MEDICARE, BC ==
[~2016-09-23] MED LIST changes: +ASCO500C7 PO; +CHOL500010 PO; +CYCL5TAB PO; -KNEE PAIN COCKTAIL VANCO INJ SCH; +LEVO50TA74 PO; +MULT-762 PO
--- NOTE | 2016-09-23 22:51 | HKNOTE ---
DATE OF SERVICE: 09/23/2016 SUBJECTIVE: A 71-year-old female presents today for 3 week postoperative visit status post right total knee replacement on 09/02/2016. Since discharge from the hospital, patient denies any pain complaints to the right knee. The patient 's only complaint is stiffness, which occurs primarily in the morning. With activity, stiffness improves throughout the day. The patient has yet to initiate outpatient physical therapy, but states that she has first session on 09/26/2016. Denies any shortness of breath, calf pain, or chest pain. The patient continues with DVT prophylaxis in regards to aspirin 325 mg b.i.d. The patient reports minimal use of postoperative pain medications, as she feels that they are not necessary due to limited pain complaints. OBJECTIVE: VITAL SIGNS: Blood pressure 145/65, temperature 98.9 degrees, pulse rate 83, respiratory rate 12, height 5 feet, weight 205 pounds. GENERAL: The patient is alert, oriented, and in no acute distress. Morbid obesity in stature. Gait is nonantalgic, but patient is walking with slight limp. RIGHT KNEE: The patient has 10 degree lag from full extension and she is able to flex the knee between 80 and 90 degrees today. No pain with flexion and extension. No tenderness to palpation. Wound site over the right knee is healing well with no signs of any infections. Mild swelling to the right knee status post surgery. Normal sensory examination to light touch. ASSESSMENT AND PLAN: 1. The patient advised to continue deep vein thrombosis prophylaxis with ASA 325mg. 2. Encourage to continue with outpatient physical therapy scheduled to begin on 09/26/2016. 3. Antibiotic card given today. 4. Important to note that patient does have ALLERGY TO PENICILLIN and alternative prophylactic antibiotics were discussed with patient today. No dental procedures until 4-6 months post-op minimum and she states understanding. 5. The patient was advised to follow up at 6 weeks postop appointment for repeat evaluation as well as updated x-rays status post surgery. 6. The patient made aware that should she experience any issues or problems that should arise, she may call in to office for earlier appointment, as we would be glad to see her. The patient was given our standard plastic card containing instructions for the use of prophylactic antibiotics as a guideline should infection develop anywhere in the body, there be the need for manipulation or scoping of the genitourinary tract or gastrointestinal tract, or for prophylaxis for dentistry. These instructions pertain for the rest of the patient's life. Dictated By: HORTENCIA ALMENDAREZ for JEROMY JAMESON MD, KP/RAFI Conf#: [id number] DID#: [id number] MTDD
== END | disposition home or self-care (01) ==
LOC: HKI 14:30
DX: Z47.1 Aftercare following joint replacement surgery (principal); Z96.651 Presence of right artificial knee joint; Z88.0 Allergy status to penicillin
CPT/HCPCS: G0463

== ENCOUNTER → 2016-10-14 | Outpatient (CLI) | payer MEDICARE, BC ==
--- NOTE | 2016-10-14 14:40 | RADRPT ---
PROCEDURE: Right knee x-ray CLINICAL INDICATION: PAIN TECHNIQUE: AP lateral and sunrise views of the right knee were obtained. COMPARISON: Right knee series 09/02/2016. FINDINGS: During interval the surgical staple line and grain have been removed. There is a total right knee p rosthesis in place without evidence of dislocation or loosening. No evidence acute fractures. No f ocal bony blastic or lytic lesions. Soft tissues are unremarkable.. IMPRESSION: Right total knee prosthesis in place without evidence of dislocation loosening or joint effusion. RPTAT:AAJJ Physician Akilah Date Time Electronically viewed and signed by Physician Akilah on 10/14/2016 14:40 /
--- NOTE | 2016-10-14 18:40 | HKNOTE ---
DATE OF SERVICE: 10/14/2016 SUBJECTIVE: A 71-year-old female who presents today for 6-week followup status post right total knee arthroplasty. When she was last seen, the patient had minimal pain complaints. The patient only has pain complaints, while undergoing outpatient physical therapy. The patient is having stiffness with flexion to the knee. Although she says stiffness has improved, she continues struggling with getting knee past 80 to 90 degrees. Denies any falls, ambulating independently. The patient denies any limitation in regards to walking distance. Denies any calf pain, chest pain or shortness of breath. Overall, the patient states that she is doing well status post surgery and is pleased, although flexion does concern her. OBJECTIVE: VITAL SIGNS: Blood pressure 138/66, temperature is 98.2, pulse 82, respiratory rate 12, height 5 feet, weight 205 pounds. GAIT: Gait is slightly abnormal due to slight limp of the right knee. The surgical wound is well healed. Well healed scarring. Normal sensory examination to light touch. No tenderness to palpation throughout the right knee. While lying supine, patient is able to flex the knee in between 80 and 90 degrees. Passive flexion yields up to 120 degrees flexion. The patient is able to achieve full extension. Negative Homans sign. IMAGING: X-ray to the right knee on 10/14/2016 showing all components well aligned and appeared to be well attached and integrated to the bone. No signs of any lucency between metal and bone. ASSESSMENT AND PLAN: 1. A lengthy discussion had with patient today. Given limited flexion of about 80 to 90 degrees, there is concern of increased scarring which will make further activity to the right knee status post surgery very difficult. It was stressed that patient focus on improving flexion to the right knee, especially with physical therapy. 2. The patient may discontinue DVT prophylaxis at this time. 3. Strongly encouraged to take [place] prior to initiating physical therapy as the patient does state that she takes about a half tab is reluctant to take pain medications. It is believed that reluctance in taking pain medications limits her performance as she has discomfort. 4. The patient may discontinue restrictions this time. Home exercise information was provided to the patient today. 5. The patient is in possession of antibiotic card. Dental prophylaxis discussed in detail again. Patient was advised to follow up in 2 weeks for repeat evaluation. Should she continue with stiffness with active flexion of the right knee, possible manipulation to reduce scarring will be explored. Patient was seen with Dr. Jameson in office today and he agrees with plan. Dictated By: HORTENCIA ALMENDAREZ for JEROMY JAMESON MD, KP/RAFI Conf#: [id number] DID#: [id number] MTDD
== END | disposition home or self-care (01) ==
LOC: HKI 14:03
DX: Z47.1 Aftercare following joint replacement surgery (principal); Z96.651 Presence of right artificial knee joint

== ENCOUNTER → 2016-10-28 | Outpatient (CLI) | payer MEDICARE, BC ==
--- NOTE | 2016-10-29 20:26 | HKNOTE ---
DATE OF SERVICE: 10/28/2016 HISTORY OF PRESENT ILLNESS: The patient had a right total knee replacement on 09/02/2016. She come s in for checkup on her knee. PHYSICAL EXAMINATION: Flexion lacks 20 degrees. The knee wound looks excellent. PLAN: She should continue with her physical therapy and she will be seen again in February for reevalua tion. Dictated By: JEROMY KANG/RAFI Conf#: [id number] DID#: [id number]
== END | disposition home or self-care (01) ==
LOC: HKI 14:29
DX: Z47.1 Aftercare following joint replacement surgery (principal); Z96.651 Presence of right artificial knee joint

== ENCOUNTER → 2017-03-04 | Outpatient (CLI) | payer MEDICARE, BC ==
--- NOTE | 2017-03-04 14:07 | RADRPT ---
PROCEDURE: Right knee radiographs. CLINICAL INDICATION: Right knee pain. Postop. TECHNIQUE: Three views. Weight bearing. Frontal, lateral, and patellar view. COMPARISON: 10/14/2016. FINDINGS: There is no fracture or dislocation. The soft tissues are normal. There is a total right knee constrained arthroplasty which appears satisfactory. There is no lytic or blastic lesion. There is no joint effusion. IMPRESSION: 1. Satisfactory postoperative appearance of the right knee. RPTAT: QQ .Maik Oneil MD, Date Time Electronically viewed and signed by .Maik Oneil MD, on 03/04/2017 14:07 .R/
--- NOTE | 2017-03-04 15:21 | PN ---
Date/Time of Note Date/Time of Note DATE: 03/04/17 TIME: 15:18 Outpatient Progress Note Chief Complaint 6 months postop visit status post right total knee replacement HPI 71-year-old female presents today for 6 month postoperative visit status post right total knee replacement. Since she was last seen, patient denies any pain complaints to the right knee. On occasion, she has some stiffness to the right knee. Patient feels that she is back to her normal function. She feels much better compared to how she felt prior to surgery. She does continue to experience slight weakness however, only when descending stairs. She denies any weakness to the knee performing any other task. Denies any chest pain/ tightness, calf pain or difficulty breathing. Review of Systems Const: No Fever, no chills, no Fatigue, normal appetite, no diaphoresis. Resp: No SOB, no wheezing, no chest pain. CV: No chest pain, no palpitaions, no HAND. Physical Exam Blood pressure is 131/78, temperature is 98.3, pulse is 75, respiratory rate is 12, height is 5 feet, weight is 205 pounds General Appearance: well-developed, well-nourished, in no acute distress. Right knee: Well-healed surgical scar. Patient has full range of motion to the right knee with flexion and extension. 5/5 strength on resistance. Negative Homans sign. Normal sensory examination to light touch. Gait is normal and nonantalgic. Imaging X-ray of the right knee performed on 03/04/2017 showing all components appearing well aligned, attached and integrated to the bone. No signs of any lucency between metal and bone. Allergies Coded Allergies: amoxicillin (Verified Allergy, Severe, HIVES, 09/02/16) Uncoded Allergies: TUMERIC (Allergy, Unknown, 09/01/16) ANTIHISTAMINES (Adverse Reaction, Intermediate, INCREASE HEART RATE--SIDE EFFECT ONLY, 09/01/16) Assessment/Plan * Patient continues to do well with no complaints today. * Continue to work on strengthening especially with descending stairs. * At this stage she may follow-up on an as-needed basis. She was made aware however, should there be any issue or complications she may schedule appointment so she may be seen in office. * Follow-up as needed Antibiotic card provided for patient at previous visit. Patient made aware that dental prophylaxis will be necessary prior to any dental procedure for the remainder of their lifetime. Patient is aware that they must contact their dentist prior to any procedure to inform them of previous joint replacement with prosthesis implant so appropriate antibiotic may be prescribed to lower risk of joint infection status post surgery. Card will also serve as confirmation should patient be traveling and have to go through security such as at an airport. Medications Home Meds Reported Medications Multivitamin (MULTI-VITAMIN DAILY) 1 Each Tablet, 1 TAB PO DAILY, TAB 09/02/16 Ascorbic Acid* (Vitamin C*) 500 Mg Capsule.sa, 100 MG PO DAILY, CAP 09/02/16 Cholecalciferol (Vitamin D3) 5,000 Unit Tablet, 5000 UNIT PO DAILY, TAB 09/02/16 Cyclobenzaprine Hcl* (Cyclobenzaprine Hcl*) 5 Mg Tablet, 5 MG PO Q8H Y for PAIN , #60 TAB 09/02/16 Levothyroxine Sodium* (Levothyroxine Sodium*) 50 Mcg Tablet, 50 MCG PO BEFORE BREAKFAST, #30 TAB 09/02/16 HORTENCIA THORNTON PA-C Mar 04, 2017 15:21
== END | disposition home or self-care (01) ==
LOC: HKI 13:18
DX: Z47.1 Aftercare following joint replacement surgery (principal); Z96.651 Presence of right artificial knee joint
CPT/HCPCS: 73562; G0463